=== PATIENT | female | born 1950 | race Caucasian/White ===

== ENCOUNTER 2016-12-09 09:32 | Emergency (ER) | payer OTHER ==
[2016-12-09 09:42] VITALS: BP 142/90
--- NOTE | 2016-12-09 10:19 | XRAY Preliminary Report ---
Exam: XR Chest 2 View PA/LAT IMPRESSION: Normal 2-view chest radiography. [facility] SITE ID: [id number]
--- NOTE | 2016-12-09 10:21 | XRAY Report ---
EXAM: CHEST RADIOGRAPHY EXAM DATE: 12/09/2016 10:05 AM. CLINICAL HISTORY: Cough. COMPARISON: None. TECHNIQUE: 2 views. FINDINGS: Lungs/Pleura: No focal opacities evident. No effusion or pneumothorax. Normal volumes. Mediastinum: Heart and mediastinal contours are unremarkable. Other: None. IMPRESSION: Normal 2-view chest radiography. [facility] Referring Provider Line: [phone] SITE ID: [id number]
[2016-12-09] MEDS ORDERED: IPRATROPIUM/ALBUTEROL 3 ML NEB INH STA (11:37)
[2016-12-09] MEDS ORDERED: DEXAMETHASONE 10 MG/ML VIAL PO STA (11:37)
[2016-12-09] MEDS ORDERED: DEXAMETHASONE 10 MG/ML VIAL ONE (11:39)
[2016-12-09] MEDS ORDERED: CHERRY SYRUP 10 ML UDC PO ONE (11:39)
--- NOTE | 2016-12-09 11:39 | ED Physician Documentation ---
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 No: Fever, Chest pain / discomfort Recently seen: Clinic - Treatment prior to arrival Treatment prior to arrival: Albuterol inhaler and steroid inhaler. - Additional information Additional information: The patient is a 66-year-old female who presents with cough and wheezing that has been waxing and waning for several months. Her cough is nonproductive. She denies fever, chest pain, or shortness of breath. She's been seen by her primary physician and has been treated with albuterol inhaler and steroid inhaler, which provides temporary relief. Her is a retired family practice physician, and he suggests that oral steroids may be of benefit. Review of Systems Constitutional: denies: Fever Nose: denies: Congestion Throat: denies: Sore throat Cardiac: denies: Chest pain / pressure Respiratory: reports: Cough, Wheezing. denies: Dyspnea GI: denies: Abdominal Pain, Vomiting : denies: Dysuria Skin: denies: Rash Musculoskeletal: denies: Back pain, Extremity swelling Neurologic: denies: Focal weakness, Numbness, Headache PD PAST MEDICAL HISTORY - Past Medical History Cardiovascular: None Neuro: Headache/migraine Endocrine/Autoimmune: HyPOthyroidism GI: None - Present Medications Home Medications: Ambulatory Orders Medication Instructions Recorded Confirmed Amitriptyline HCl 1 tab PO DAILY 02/20/16 02/20/16 Levothyroxine [Synthroid] 1 tab PO DAILY 02/20/16 02/20/16 Prednisone 10 mg PO DAILY #12 tablet 12/09/16 Valacyclovir HCl [Valacyclovir] 12/09/16 - Allergies Allergies/Adverse Reactions: Allergies Allergy/AdvReac Type Severity Reaction Status Date / Time ofloxacin [From Floxin] Allergy Unknown Verified 02/20/16 17:50 - Living Situation Living Situation: reports: With spouse/s.o. Living Arrangement: reports: At home - Social History Does the pt smoke?: No Smoking Status: Never smoker PD ED PE NORMAL - Vitals Vital signs reviewed: Yes (Mild hypertension initially.) - General General: Alert and oriented X 3, Well developed/nourished - HEENT HEENT: Atraumatic, EOMI, Ears normal, Pharynx benign - Neck Neck: Supple, no meningeal sign, No adenopathy, No JVD - Cardiac Cardiac: RRR, No murmur - Respiratory Respiratory: Other (Expiratory wheezing bilaterally with forced expiration. Wheezing is not heard with gentle expiration.) - Abdomen Abdomen: Soft, Non tender - Back Back: No CVA TTP - Derm Derm: No rash - Extremities Extremities: No edema, No calf tenderness / cord - Neuro Neuro: Alert and oriented X 3, No motor deficit, Normal speech Results - Vitals Vitals: Oxygen O2 Source Room air - Rads (name of study) CXR Radiology: Prelim report reviewed, EMP read contemporaneously, See rad report ( Normal 2 view chest radiography.) PD MEDICAL DECISION MAKING - ED course Complexity details: reviewed results, re-evaluated patient, considered differential, d/w patient, d/w family ED course: The patient's presentation is most consistent with asthmatic bronchitis, with exacerbation. There is no evidence of pneumonia, congestive heart failure, or pneumothorax on chest x-ray. I doubt pulmonary embolus. Treatment in the emergency department included administration of DuoNeb nebulizer and oral dexamethasone, 10 mg. On repeat evaluation her chest is clear to auscultation. She feels subjectively much improved. She is being discharged with prescription for prednisone. She will continue using albuterol inhaler. I discussed with her and her the results of the x-ray, outpatient treatment and follow-up, as well as potentially worrisome signs or symptoms that should prompt reevaluation in the emergency department. Departure - Departure Disposition: 01 Home, Self Care Clinical Impression: Asthmatic bronchitis Qualifiers: Asthma severity: unspecified severity Asthma complication type: with acute exacerbation Qualified Code(s): J45.901 - Unspecified asthma with (acute) exacerbation Condition: Stable Instructions: ED Bronchitis Asthmatic Follow-Up: [facility] [Provider Group] Prescriptions: Prednisone 10 mg PO DAILY #12 tablet Comments: Continue to use your albuterol inhaler as needed. Use the spacer device. Take prednisone daily for the next 6 days, as prescribed. Follow up with your primary physician within one week. Call to schedule an appointment. Return to the emergency department if you develop increasing difficulty breathing, or otherwise worsening symptoms. Discharge Date/Time: 12/09/16 12:33
== END 2016-12-09 12:33 | disposition home or self-care (01) ==
LOC: ED 09:32
DX: J45.901 Unspecified asthma with (acute) exacerbation (principal)
CPT/HCPCS: 71020; 94640; 99283; 99284; A9270; J7620

== ENCOUNTER 2020-08-17 09:12 | Outpatient (CLI) | payer MEDICARE, OTHER ==
--- NOTE | 2020-08-18 16:43 | Mammography Report ---
BILATERAL DIGITAL SCREENING MAMMOGRAM 3D/2D: 08/17/2020 CLINICAL: Family history of breast cancer. Routine screening. Comparison is made to exams dated: 07/09/2019 mammogram, 06/29/2018 mammogram, and 06/29/2017 mammogram - [facility]. The tissue of both breasts is heterogeneously dense. This may lower th e sensitivity of mammography. No significant masses, calcifications, or other findings are seen in either breast. There has been no significant interval change. IMPRESSION: NEGATIVE There is no mammographic evidence of malignancy. A 1 year screening mammogram is recommended. This exam was interpreted at Station ID: [id number]. NOTE: For mammograms, a report in lay terms will be sent to the patient. Approximately 15% of breast malignancies will not be visualized mammographically. In the management of a palpable breast mass, a negative mammogram must not discourage biopsy of a clinically suspicious lesion. Electronically Signed By: Graeme klein/yanet:08/17/2020 14:48:39 ACR BI-RADS Category 1: Negative 3341F PARENCHYMAL PATTERN: (D) - The breast(s) demonstrate(s) heterogeneously dense fibroglandular nader bates. BI-RADS CATEGORY: (1) - 1 RECOMMENDATION: (ANNUAL) - Recommend routine annual screening mammography. [id number] 1 year screening LATERALITY: (B)
== END 2020-08-17 09:13 | disposition home or self-care (01) ==
LOC: DI.N 09:12
DX: Z12.31 Encounter for screening mammogram for malignant neoplasm of breast (principal); Z80.3 Family history of malignant neoplasm of breast
CPT/HCPCS: 77063; 77067

== ENCOUNTER 2023-09-12 15:34 | Emergency (ER) | payer MEDICARE, OTHER ==
[2023-09-12 16:11] LABS: BASOPHILS % (AUTO) 0.5 %; EOSINOPHILS % (AUTO) 0.5 %; HCT - HEMATOCRIT 41.4 % (37.0-47.0); HGB - HEMOGLOBIN 13.4 g/dL (12.0-16.0); LYMPHOCYTES % (AUTO) 30.7 %; MEAN CORPUSCULAR HEMOGLOBIN 29.9 pg (27.0-31.0); MEAN CORPUSCULAR HGB CONC 32.4 g/dL (32.0-36.0); MEAN CORPUSCULAR VOLUME 92.4 fL (81.0-99.0); MEAN PLATELET VOLUME 11.4 fL (7.9-10.8); MONOCYTES # (AUTO) 0.5 10^3/uL (0.0-1.0); MONOCYTES % (AUTO) 8.4 %; NEUTROPHILS # (AUTO) 3.9 10^3/uL (1.5-6.6); NEUTROPHILS % (AUTO) 59.7 %; PLT - PLATELET COUNT 170 10^3/uL (130-450); RED BLOOD COUNT 4.48 10^6/uL (4.20-5.40); RED CELL DISTRIBUTION WIDTH 13.8 % (12.0-15.0); WHITE BLOOD COUNT 6.5 x10^3/uL (4.8-10.8)
[2023-09-12 16:24] LABS: ALBUMIN 4.7 g/dL (3.2-5.5); ALBUMIN/GLOBULIN RATIO 1.9 (1.0-2.2); BILIRUBIN,TOTAL 0.3 mg/dL (0.2-1.0); CALCIUM 9.6 mg/dL (8.5-10.3); CREATININE 0.8 mg/dL (0.6-1.3); POTASSIUM 3.9 mmol/L (3.5-4.5); TOTAL PROTEIN 7.2 g/dL (6.4-8.9)
--- NOTE | 2023-09-12 16:30 | CT Report ---
PROCEDURE: HEAD WO INDICATIONS: Transient visual loss 10 days ago TECHNIQUE: Noncontrast 4.5 mm thick angled axial sections acquired from the foramen magnum to the vertex. For r adiation dose reduction, the following was used: automated exposure control, adjustment of mA and/or kV according to patient size. COMPARISON: None. FINDINGS: Image quality: Excellent. The ventricular system and cortical sulci demonstrate atrophy, consistent for patient's stated age. There are areas of hypodensity in the periventricular and subcortical white matter. There is no acut e intra or extra-axial fluid collection. No acute hemorrhage, mass lesion or midline shift. Brainst em is unremarkable. Globes are symmetrical. Sinuses are aerated. Osseous structures are intact. IMPRESSION: 1. No acute intracranial process. 2. Mild atrophy and chronic microvascular ischemic changes. Reviewed by: Anna Garcia MD on 09/12/2023 4:29 PM [facility] Approved by: Anna Garcia MD on 09/12/2023 4:29 PM PST Station ID: [id number]
[2023-09-12 16:51] VITALS: BP 151/83; O2SAT 99
--- NOTE | 2023-09-12 17:10 | ED Physician Documentation ---
PD HPI FOCAL NEURO - Stated complaint Stated Complaint: LOSS OF SIGHT LT SIDE - Chief complaint Chief Complaint: Neuro - History obtained from History obtained from: Patient - Additional information Additional information: The [place] of visual loss 10 days ago. The patient states that she was just going about her normal activities when she suddenly noticed that she seemed to lose the lateral portion of her left peripheral vision for approximately 5 or 10 minutes. She states that she did not have any other symptoms whatsoever. After about 5 or 10 minutes, she began to notice that she was regaining her peripheral vision and gradually over the ensuing minutes, her vision returned. She states she has been asymptomatic ever since. She has never had an episode like this before. She states she is otherwise fairly healthy. She is not on aspirin. No other complaints at this time. PD PAST MEDICAL HISTORY - Past Medical History Past Medical History: Yes Cardiovascular: High cholesterol Respiratory: None Neuro: None Endocrine/Autoimmune: HyPOthyroidism GI: None HEEL BUILDER: None : None HEENT: None Psych: None Musculoskeletal: None Derm: Eczema - Past Surgical History Past Surgical History: Yes Ortho: Other /HEEL BUILDER: Tubal ligation - Present Medications Home Medications: Ambulatory Orders Medication Instructions Recorded Confirmed Amitriptyline HCl 25 tab PO DAILY 02/20/16 09/12/23 Levothyroxine [Synthroid] 88 mcg PO DAILY 02/20/16 09/12/23 Valacyclovir HCl [Valacyclovir] 500 mg ORAL DAILY 12/09/16 09/12/23 - Allergies Allergies/Adverse Reactions: Allergies Allergy/AdvReac Type Severity Reaction Status Date / Time ofloxacin [From Floxin] Allergy Unknown Verified 09/12/23 15:40 lovastatin AdvReac Unknown Verified 09/12/23 15:40 - Social History Does the pt smoke?: No Smoking Status: Never smoker Does the pt drink ETOH?: Yes Does the pt have substance abuse?: No - Immunizations Immunizations are current?: Yes PD ED PE NORMAL - Vitals Vital signs reviewed: Yes - General General: Alert and oriented X 3, No acute distress, Well developed/nourished - HEENT HEENT: Atraumatic, PERRL, EOMI, Moist mucous membranes - Neck Neck: Supple, no meningeal sign - Cardiac Cardiac: RRR, No murmur - Respiratory Respiratory: No respiratory distress, Clear bilaterally - Derm Derm: Normal color, Warm and dry, No rash - Extremities Extremities: No deformity, No edema - Neuro Neuro: Alert and oriented X 3, 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, No motor deficit, No sensory deficit, Normal speech - Psych Psych: Normal mood, Normal affect Results - Vitals Vitals: Vital Signs - 24 hr 09/12/23 09/12/23 15:40 16:46 Temperature 37 C Heart Rate 87 88 Respiratory 16 20 Rate Blood Pressure 160/71 H 151/83 H O2 Saturation 98 99 Oxygen O2 Source Room air - Labs Labs: Laboratory Tests 09/12/23 09/12/23 16:05 16:05 WBC 6.5 RBC 4.48 Hgb 13.4 Hct 41.4 MCV 92.4 MCH 29.9 MCHC 32.4 RDW 13.8 Plt Count 170 MPV 11.4 H Neut # (Auto) 3.9 Lymph # (Auto) 2.0 [place] # (Auto) 0.5 Eos # (Auto) 0.0 Baso # (Auto) 0.0 Absolute Nucleated RBC 0.00 Nucleated RBC % 0.0 Sodium 140 Potassium 3.9 Chloride 104 Carbon Dioxide 31 Anion Gap 5.0 L BUN 17 Creatinine 0.8 Estimated GFR (MDRD) 71 L Glucose 95 Calcium 9.6 Total Bilirubin 0.3 AST 21 ALT 21 Alkaline Phosphatase 88 Total Protein 7.2 Albumin 4.7 Globulin 2.5 Albumin/Globulin Ratio 1.9 Lipase 15 - Rads (name of study) CT head no contrast Relevant Findings:: Final report received, See rad report (Evidence of small vessel disease, no acute findings.) PD Medical Decision Making - ED course Complexity details: reviewed results, re-evaluated patient, considered differential, d/w patient ED course: The patient was worked up with laboratory studies and CT scan of the head, all of which were unremarkable. The patient had distant and very brief symptoms and at this point, there is not much to be done about her episode last week. I had already discussed with her primary doctor that she would need to have an echocardiogram scheduled as an outpatient and he has stated that he will get the ball rolling with this for this now. I do not think the MRI is likely to be very helpful at this point in time, given the patient's full recovery, brief symptoms, and lack of other symptoms, as well as the amount of time that has elapsed since the patient's episode. We have discussed the need to come immediately to the emergency department, should the patient have the symptoms again. I have advised the patient to start taking a baby aspirin every day and she states that she will begin this as they already have baby aspirin at home. Departure - Departure Disposition: 01 Home, Self Care Clinical Impression: Transient visual loss of left eye Condition: Stable Instructions: ED Transient Ischemic Attack Comments: Your labs and CT scan look great. There is no evidence of a tumor or other space-occupying lesion within your brain to explain the symptoms you had. Furthermore, given the very short-lived nature of the symptoms, it would be unlikely that a chronic lesion such as a tumor would be the cause. Most likely, you had a transient loss of blood flow into one of the very tiny vessels in your brain and this caused the transient loss of vision in your left eye. At this point in time, there is not much other testing that will be helpful this far out. I have talked to your doctor about ordering an echocardiogram to look at your heart and be sure there is not a clot on the wall of your heart, though with a regular rhythm and no heart murmur, this is also quite unlikely. Your doctor has said he will get the process going and getting an echocardiogram ordered. The other important thing is to take a baby aspirin each day to help prevent formation of plaque or clots and help prevent further strokes of any size. If you do develop recurrence of these or any other neurologic symptoms, please come immediately to the emergency department so we can acutely image and try to get to the bottom of what is going on. Otherwise, please follow-up with your primary care physician.
== END 2023-09-12 17:18 | disposition home or self-care (01) ==
LOC: ED 15:34
DX: H53.122 Transient visual loss, left eye (principal); E03.9 Hypothyroidism, unspecified; E78.00 Pure hypercholesterolemia, unspecified; Z79.899 Other long term (current) drug therapy
CPT/HCPCS: 36415; 80053; 83690; 85025; 93005; 99283; 99284

== ENCOUNTER 2023-09-28 09:16 | Outpatient (CLI) | payer MEDICARE, OTHER | END 2023-09-28 09:17 | disposition home or self-care (01) | LOC: DI 09:16 | PROVIDERS: ATTEND Family Medicine | DX: Z09 Encounter for follow-up examination after completed treatment for conditions other than malignant neoplasm (principal); Z86.69 Personal history of other diseases of the nervous system and sense organs | CPT/HCPCS: 93306 ==